=== PATIENT | female | born 1980 | race Caucasian/White ===

== ENCOUNTER → 2017-04-09 | Outpatient (CLI) | payer BC ==
--- NOTE | 2017-04-09 07:59 | MM ---
Reason for exam: screening (asymptomatic). Baseline mammogram. History: Patient is nulliparous. Took hormonal contraceptives for 10 years. Physical Findings: Nurse did not find any significant physical abnormalities on exam. MG Screening Mammo w CAD Bilateral CC and MLO view(s) were taken. The breast tissue is heterogeneously dense. This may lower the sensitivity of mammography. There is no discrete abnormality. These results were verbally communicated with the patient and result sheet given to the patient on 04/09/17. ASSESSMENT: Negative, BI-RAD 1 RECOMMENDATION: Routine screening mammogram of both breasts in 1 year.
== END | disposition home or self-care (01) ==
LOC: RADMAMWWP 06:56
PROVIDERS: ATTEND Obstetrics & Gynecology
DX: Z12.31 Encounter for screening mammogram for malignant neoplasm of breast (principal)

== ENCOUNTER → 2022-03-06 | Outpatient (CLI) | payer BC ==
--- NOTE | 2022-03-09 10:21 | MM ---
Reason for Exam: Screening (asymptomatic). Last mammogram was performed 4 year(s) and 11 month(s) ago. Patient History: Menarche at age 13. Patient has no children. Patient used Hormonal Contraceptives for 10 years. Risk Values: Jenifer 5 year model risk: 0.6%. NCI Lifetime model risk: 11.1%. Prior Study Comparison: 04/09/2017 Bilateral Screening Mammogram, [facility]. Tissue Density: The breast tissue is heterogeneously dense. This may lower the sensitivity of mammography. Analyzed By CAD. Overall Assessment: Negative, BI-RAD 1 Management: Screening Mammogram of both breasts in 1 year. Electronically signed and approved by: Jeremy Choudhury D.O.
== END | disposition home or self-care (01) ==
LOC: RADMAMWWP 06:53
PROVIDERS: ATTEND Obstetrics & Gynecology
DX: Z12.31 Encounter for screening mammogram for malignant neoplasm of breast (principal)
CPT/HCPCS: 77067

== ENCOUNTER → 2024-02-08 | Outpatient (CLI) | payer BC ==
--- NOTE | 2024-02-11 09:19 | MM ---
Reason for Exam: Screening (asymptomatic). Last mammogram was performed 1 year(s) and 11 month(s) ago. Patient History: Menarche at age 13. Patient has no children. Patient used Hormonal Contraceptives for 10 years. Last menstrual period: 02/03/2024 Risk Values: Jenifer 5 year model risk: 0.7%. NCI Lifetime model risk: 10.9%. Prior Study Comparison: 04/09/2017 Bilateral Screening Mammogram, [facility]. 03/06/2022 Bilateral MG screening mammo w CAD, [facility]. Tissue Density: The breasts are heterogeneously dense, which may obscure small masses. Findings: Analyzed By CAD. Right breast: There is no suspicious group of microcalcifications or new suspicious mass. Left breast: There is no suspicious group of microcalcifications or new suspicious mass. Overall Assessment: Negative, BI-RAD 1 Management: Screening Mammogram of both breasts in [address] [facility] will attempt to contact patient to return for supplemental views and ultrasound if indicated. Patient should continue monthly self-breast exams. A clinical breast exam by your physician is recommended on an annual basis. This exam should not preclude additional follow-up of suspicious palpable abnormalities. Note on Jenifer scores and lifetime risk: 1. A Jenifer score greater than 3% is considered moderate risk. If this is the case, consider specialist referral to assess eligibility for a risk reducing agent. 2. If overall lifetime risk for the development of breast cancer is 20% or higher, the patient may qualify for future screening with alternating mammogram and breast MRI. Electronically signed and approved by: Wilder Rodriguez DO
== END | disposition home or self-care (01) ==
LOC: RADMAMWWP 07:53
PROVIDERS: ATTEND Family Medicine
DX: Z12.31 Encounter for screening mammogram for malignant neoplasm of breast (principal); Z92.0 Personal history of contraception
CPT/HCPCS: 77067